=== PATIENT | female | born 1940 | race Caucasian/White ===

== ENCOUNTER 2017-01-26 16:15 | Emergency (ER) | payer MEDICARE ==
[2017-01-26 16:30] VITALS: BP 152/93
--- NOTE | 2017-01-26 19:09 | ERNOTE ---
Lower Extremity HPI - Narrative Date of Service: 01/26/17 - General Lower Extremities Pain: hip: left Time Seen by Provider: 01/26/17 17:20 Source: patient, RN notes reviewed, old records Exam Limitations: no limitations - Immun/Allergies/Home Medications Immunizations: IMMUNIZATION HX Immunizations Up to Date Yes Allergies/Adverse Reactions: Allergies Allergy/AdvReac Type Severity Reaction Status Date / Time No Known Allergies Allergy Verified 01/26/17 16:30 Home Medications: HOME MEDICATIONS Acetaminophen [Tylenol Arthritis] 650 mg PO Q8H PRN 09/19/12 [Last Taken Unknown ] Aspirin [Aspirin Enteric Coated] 81 mg PO DAILY 09/19/12 [Last Taken Unknown] Atorvastatin Calcium [Lipitor] 20 mg PO DAILY 09/19/12 [Last Taken Unknown] Cholecalciferol (Vitamin D3) [Vitamin D3] 1,000 unit PO DAILY 09/19/12 [Last Taken Unknown] Docusate Sodium [Colace] 100 mg PO DAILY 09/19/12 [Last Taken Unknown] Gluc/Tyler-MSM#1/C/Rian/Giorgio/Bor [Osteo Bi-Flex Caplet] 2 each PO DAILY 09/19/12 [ Last Taken Unknown] Telmisartan [Micardis] 40 mg PO DAILY 09/19/12 [Last Taken Unknown] - History of Present Illness Narrative: 76 y/o female ambulatory to the ED for left hip pain that began gradually over the past few days. She reports having arthritis and routinely takes Tylenol for it. Her pain became significantly worse earlier today when she was sitting with her left leg crossed over her right while putting new inserts in her shoes. She reports that her pain is not bad until she tries to put weight on the left leg. She is ambulating with a cane. She had Tylenol earlier this afternoon and currently denies the need for any other pain medication. She also denies any falls or specific injury. Date (Duration): 01/27/17 Occurred: this afternoon Location of Incident: home Method of Injury: Reports: no apparent injury Modifying Factors - (Improves): Reports: rest Modifying Factors - (Worsens): Reports: other - weight bearing Associated Symptoms: Denies: unable to bear weight, snapping, popping sensation , weakness, sensory loss, bowel/bladder problems Subsequent Symptoms: Denies: sensory loss, numbness, motor loss, bowel/bladder problem Prior Treament: Denies: recently seen, similar symptoms before Review of Systems - Review of Systems Constitutional: Absent: recent illness, fever, chills, malaise EYE: Present: no symptoms reported ENT: Present: no symptoms reported Respiratory: Absent: shortness of breath, cough Cardiology: Absent: chest pain, edema Gastrointestinal/Abdominal: Absent: diarrhea, constipation, abdominal pain Genitourinary: Present: See HPI Musculoskeletal: Present: joint pain. Absent: back pain, muscle pain, joint swelling Skin: Absent: lesions, lumps, change in color Neurological: Absent: weakness, numbness, tingling Endocrine: Present: no symptoms reported Hematologic/Lymphatic: Present: no symptoms reported Psych: Present: no symptoms reported - Patient's Past Medical History Patient History - Medical: Arthritis Patient History - Cardiac/Respiratory: Hypertension, Hyperlipidemia Patient History - Cancer: Ovarian Patient History - Surgical Procedures: Cataracts, Colonoscopy, Hysterectomy Patient History - Other: None LMP (females 10-50): Menopausal - Social History Living Situations: alone Psych History: No pertinent hx Does anyone smoke in the home?: Yes Smoking Status: Never smoker Alcohol Use: none Drug Use: none - Immunizations Immunizations Up to Date: Yes Hx Pneumococcal Vaccination: Yes History of Influenza Vaccine: No Physical Exam - Physical Exam General Appearance: Present: wd/wn, alert, no apparent distress Neck: Present: normal inspection, nontender, supple, full range of motion Respiratory: Present: no respiratory distress, normal breath sounds, no accessory muscle use, lungs clear Cardiovascular/Chest: Present: regular rate, rhythm, no murmur, normal peripheral pulses Back Exam: Present: normal inspection, normal range of motion, no CVA tenderness , no vertebral tenderness Extremity Exam: Present: normal range of motion, no edema, other - mild tenderness with palpation of left posterior hip just below buttock, no ecchymosis or deformity, grimaces with pain when putting weight on left leg. Absent: joint redness, joint swelling Neurological Exam: Present: alert, oriented, normal mood/affect, no motor/ sensory deficits Skin Exam: Present: normal color, warm/dry ED Progress - Vital Signs Patient's Vital Signs:: I have reviewed the patient's vital signs. Vital Signs: Vital Signs 01/26/17 16:27 Temperature 36.4 C L Pulse Rate 83 Respiratory 16 Rate Blood Pressure 152/93 O2 Sat by Pulse 97 Oximetry - X-Ray X-Ray #1 X-Ray: hip Interpretation: Reviewed by me X-ray Comments: ONE VIEW PELVIS AND 2 VIEW LEFT HIP COMPARISON: See below AP PELVIS: Single AP view of the pelvis was obtained. There are no prior studies for comparison. The bony pelvis is symmetric in appearance. I do not see evidence for fracture, diastases, or bony destruction. There is mild diffuse osteopenia. There is moderate-to- marked narrowing of the right hip joint without significant spurring. LEFT HIP: AP and frog-leg views of the left hip were obtained. There are no prior studies for comparison. The femoral head is normally positioned within the acetabulum. The joint space moderate narrowing with subchondral sclerosis and no significant spurring. The proximal femur appears intact IMPRESSION: 1. MILD DIFFUSE OSTEOPENIA. 2. MODERATE TO MARKED NARROWING OF THE HIP JOINTS (RIGHT GREATER THAN LEFT). 3. NO ACUTE OSSEOUS ABNORMALITY. Electronically signed by Bj Garcia M.D.. - Progress/Reassessment Chief Complaint: Lower Extremity Pain/ Injury Progress:: Unchanged Plan - Plan Plan: Discussed xray results, patient relieved that there is no fracture. Discussed osteoarthritis at length, has some difficulty understanding why she would suddenly start having more pain. Wishes to continue Tylenol for pain. Recommended f/u with PCP for lack of improvement in the next week. Departure Clinical Impression: Hip pain, left Osteoarthritis Qualifiers: Osteoarthritis location: hip Osteoarthritis type: unspecified Laterality: left Qualified Code(s): M16.12 - Unilateral primary osteoarthritis, left hip - Departure Disposition: Home Follow Up Needed Condition: Stable Instructions: Hip Pain Additional Instructions: Continue your current medications Follow up with your doctor if symptoms continue Referrals: Candelario Stinson MD [Primary Care Provider] -
== END 2017-01-26 19:08 | disposition home or self-care (01) ==
LOC: ER 16:15
DX: M25.552 Pain in left hip (principal); M16.12 Unilateral primary osteoarthritis, left hip; I10 Essential (primary) hypertension; E78.5 Hyperlipidemia, unspecified

== ENCOUNTER 2019-07-14 12:46 | Observation (INO) ==
[2019-07-14 13:09] LABS: Urine Bilirubin Negative (NEGATIVE); Urine Blood Negative /ul (NEGATIVE); Urine Ketone Negative (NEGATIVE); Urine Nitrite Negative (NEGATIVE); Urine Protein Negative (NEGATIVE); Urine Specific Gravity <=1.005 SP.GR. (1.005-1.010); Urine Urobilinogen Normal (NORMAL); Urine pH 8.5 pH (5.0-7.0)
--- NOTE | 2019-07-14 13:20 | ERNOTE ---
Neuro HPI ER Record Presenting Symptoms: confusion Time Seen by Provider: 07/14/19 13:01 Source: patient Exam Limitations: other Immunizations: IMMUNIZATION HX Immunizations Up to Date Yes History of Influenza Vaccine Yes Hx Pneumococcal Vaccination Yes Allergies/Adverse Reactions: Allergies Allergy/AdvReac Type Severity Reaction Status Date / Time No Known Allergies Allergy Verified 07/14/19 16:37 Home Medications: HOME MEDICATIONS Acetaminophen [Tylenol Arthritis] 650 mg PO Q8H PRN 09/19/12 [Last Taken Unknown] Aspirin [Aspirin Enteric Coated] 81 mg PO DAILY 09/19/12 [Last Taken Unknown] Docusate Sodium [Colace] 100 mg PO DAILY 09/19/12 [Last Taken Unknown] Gluc/Tyler-MSM#1/C/Rian/Giorgio/Bor [Osteo Bi-Flex Caplet] 2 ea PO DAILY 09/19/12 [Last Taken Unknown] polyethylene glycol 3350 17 gram/dose oral powder 17 g PO DAILY #510 g 01/25/19 [Last Taken Unknown] Atorvastatin Calcium [Lipitor] 20 mg PO DAILY 07/14/19 [Last Taken Unknown] Telmisartan [Micardis] 40 mg PO DAILY 07/14/19 [Last Taken Unknown] - History of Present Illness Narrative: Patient was last seen normal by family members around 10:30. 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 She currently knows her name and that she is in the hospital but not sure about the date or season. She feels slightly dizzy but denies any other complains Onset: cannot confirm onset Severity: mild - Character of Deficits New weakness: Absent: RUE, RLE, LUE, LLE Altered sensation: Absent: RUE, RLE, LUE Additional Deficits: Absent: vision problems, impaired speech Baseline Cognition: Present: alert but disoriented to time Baseline Gait: Present: walks w/o assistance Associated Symptoms: Denies: fever/chills, sweating, chest pain, neck/back pain, headache Prior Treament: Denies: recently seen, similar symptoms before Review of Systems - Review of Systems Constitutional: Absent: recent illness EYE: Absent: vision changes ENT: Absent: nose congestion, sore throat Respiratory: Absent: shortness of breath Cardiology: Absent: chest pain Gastrointestinal/Abdominal: Absent: nausea, abdominal pain Genitourinary: Present: no symptoms reported Musculoskeletal: Absent: back pain Skin: Absent: rash Neurological: Present: See HPI. Absent: headache Medical History (Last Reviewed 07/14/19 @ 14:05 by Tere Rob MD) Essential hypertension (Chronic) Age-related cognitive decline (Chronic) Encounter for Medicare annual wellness exam (Acute) Trochanteric bursitis of right hip (Acute) Constipation by delayed colonic transit (Acute) Pain in joint of right hip (Chronic) Pain in right knee (Chronic) Vitamin D deficiency (Chronic) Hypertension (Chronic) Hyperlipidemia (Chronic) Osteopenia Ovarian cancer Arthritis Onset Date: ~2004 Hyperlipidemia due to dietary fat intake Onset Date: ~2002 Hypertension Onset Date: ~2002 Ovarian mass Onset Date: ~1979 10 lb mass removed; Rxed w/ radiation; pt felt it was due to CA Surgical History: Surgical History (Last Reviewed 07/14/19 @ 14:05 by Tere Rob MD) History of YAG laser capsulotomy of lens 09/20/2017, 12/23/2010; Left, Right- Hx of cataract surgery Onset Date: ~2002 ; Bilateral Hx of colonoscopy 1996, 2003, 2008, 09/20/2012; Polyp's Removed in 2003 and 2008 . 2008 Tubular Adenoma. 2012 [place]-scattered sigmoid diverticulosis. Recheck in 5 years Hx of hysterectomy HERN[facility]N BSO Family History: Family History (Last Reviewed 07/14/19 @ 16:37 by Cely Dai RN) Father , @ age 64 Colon cancer Mother , @ age 84 of old age No problems noted. Sister , @ age 67 Breast cancer Social History: (Last Reviewed 07/14/19 @ 16:37 by Cely Dai RN) Social History: penitentiary: No Marital status: Single lives independently: Yes household members: none current occupational status: retired Highest education level completed: Master's degree Service: No Tobacco: Smoking Status: Never smoker Alcohol: alcohol intake: former Substance Use: substance use type: does not use Dietary Habits: caffeine: Yes Physical Exam - Physical Exam General Appearance: Present: wd/wn, alert, no apparent distress, anxious Head Exam: Present: normal inspection, no evidence of injury Eye Exam: Normal inspection: bilateral, PERRL: bilateral, EOMI: bilateral Ears, Nose, Throat: Present: normal ENT inspection, normal pharynx Neck: Present: normal inspection, nontender Respiratory: Present: no respiratory distress, normal breath sounds, no accessory muscle use, lungs clear Cardiovascular/Chest: Present: regular rate, rhythm, no murmur Gastrointestinal/Abdominal: Present: normal bowel sounds, nontender, nondistended, soft Back Exam: Present: no vertebral tenderness Extremity Exam: Present: normal inspection Neurological Exam: Present: normal mood/affect, no motor/sensory deficits, 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 Absent: disoriented to person, disoriented to place Skin Exam: Present: normal color, warm/dry [place] Coma Scale - Assess Eye Opening: Spontaneous Motor: Obeys Commands Verbal: Confused - Total Coma Scale Total: 14 Progress - Results and Orders Patient's Lab Results:: I have reviewed the patient's lab results. - Vital Signs Patient's Vital Signs:: I have reviewed the patient's vital signs. Vital Signs: Vital Signs 07/14/19 12:46 Temperature 36.6 C Pulse Rate 80 Respiratory Rate 21 H Blood Pressure 130/68 O2 Sat by Pulse Oximetry 100 - EKG EKG #1 EKG: NSR, other - no acute changes EKG read: Interp. by me - CT/Ultrasound CT/Ultrasound Narrative: CT head: no acute changes - Progress/Reassessment Chief Complaint: Altered Mental Status Progress Note-Subjective: 07/14/19 15:30 discussed test results with patient and family. Patient alert, now knows that it is it June, thinks it is 1918 nieces state that that neighbors think she might have had spells like this before 07/14/19 15:[address] Mejía, okay to admit for observation for mental status changes Departure Clinical Impression: Confusion - Departure Disposition: Still a patient Condition: Stable
[2019-07-14 13:27] LABS: Urine Appearance Clear (CLEAR); Urine Bacteria None Seen; Urine Color Yellow; Urine RBC None Seen /hpf (0-5); Urine WBC 0-5 /hpf (0-5)
[2019-07-14 13:34] LABS: Hematocrit 37.3 % (37.0-47.0); Hemoglobin 12.5 gm/dL (12.5-16.0); Mean Cell Volume 94.7 fl (78-100); Mean Corpuscular Hemoglobin 31.7 pg (27-31); Mean Corpuscular Hgb Conc 33.5 g/dl (32-36); Mean Platelet Volume 9.8 fl (8-12.5); Neutrophil # 3.3 K/mm3 (1.3-6.0); Neutrophil % 54.2 % (42-75.0); Platelet Count 190 K/mm3 (150-450); Red Blood Count 3.94 M/mm3 (4.2-5.4); Red Cell Distribution Width 12.9 % (11.5-14.0); White Blood Count 6.1 K/mm3 (4.0-10.5)
[2019-07-14 13:45] LABS: ALT 16 U/L (19-67); AST 21 U/L (0-48); Albumin * 4.4 gm/dl (3.4-5.0); Alkaline Phosphatase * 61 U/L (50-170); Anion Gap 13.4 mmol/L (6.8-13.8); BUN/Creatinine Ratio 13.8 (9.0-21.6); Bilirubin, Total 0.7 mg/dL (0.0-1.1); Blood Urea Nitrogen 12 mg/dL (3-23); Ca. Corrected For Albumin 9.6 mg/dL (8.4-10.2); Calcium * 10.2 mg/dL (7.9-10.9); Carbon Dioxide 26.9 mmol/L (24-32.6); Chloride 101 mmol/L (97-106); Glucose * 88 mg/dL (70-110); Potassium 3.3 mmol/L (3.4-4.6); Sodium 138 mmol/L (132-142); Total Protein 7.6 gm/dL (6.2-8.2)
[2019-07-14] MEDS ORDERED: ACETAMINOPHEN 325 MG TABLET PO PRN (18:46)
--- NOTE | 2019-07-14 18:56 | HP ---
Chief Complaint - Chief Complaint Date of Service: 07/14/19 Time of Service: 18:30 Chief Complaint: Acute altered mental status History of Present Illness: Vikki Gomez is a 79-year-old female patient fairly well-known to me she is been a patient in the clinic for about a year. Today she had driven downtown and was looking for a hairdresser shop. She got out of her car and became disoriented and became lost. A helpful bystander asked her if she needed some help and help her get oriented to where the hairdresser shop was and the police came and found her car because she could not find out earlier as well. She then was brought to the hospital where she was evaluated. It appears that she has progressed with her dementia that I suspected in the past. She is very aware of what happened today and can recount the events of the day very well. She still has trouble with time and date. She is tired this evening. CT scan and chemistries were all unrevealing. 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 She is concerned about the mental decline however. She has been retired for several years. Medical History (Last Reviewed 07/14/19 @ 16:37 by Cely Dai RN) Essential hypertension (Chronic) Age-related cognitive decline (Chronic) Encounter for Medicare annual wellness exam (Acute) Trochanteric bursitis of right hip (Acute) Constipation by delayed colonic transit (Acute) Pain in joint of right hip (Chronic) Pain in right knee (Chronic) Vitamin D deficiency (Chronic) Hypertension (Chronic) Hyperlipidemia (Chronic) Osteopenia Ovarian cancer Arthritis Onset Date: ~2004 Hyperlipidemia due to dietary fat intake Onset Date: ~2002 Hypertension Onset Date: ~2002 Ovarian mass Onset Date: ~1979 10 lb mass removed; Rxed w/ radiation; pt felt it was due to CA Surgical History: Surgical History (Last Reviewed 07/14/19 @ 16:37 by Cely Dai RN) History of YAG laser capsulotomy of lens 09/20/2017, 12/23/2010; Left, Right- Hx of cataract surgery Onset Date: ~2002 ; Bilateral Hx of colonoscopy 1996, 2003, 2008, 09/20/2012; Polyp's Removed in 2003 and 2008 . 2009 Tubular Adenoma. 2013 [place]-scattered sigmoid diverticulosis. Recheck in 5 years Hx of hysterectomy HERNÁN BSO Family History: Family History (Last Reviewed 07/14/19 @ 16:37 by Cely Dai RN) Father , @ age 64 Colon cancer Mother , @ age 84 of old age No problems noted. Sister , @ age 67 Breast cancer Social History: (Last Reviewed 07/14/19 @ 16:37 by Cely Dai RN) Social History: chcf: No Marital status: Single lives independently: Yes household members: none current occupational status: retired Highest education level completed: Master's degree Service: No Tobacco: Smoking Status: Never smoker Alcohol: alcohol intake: former Substance Use: substance use type: does not use Dietary Habits: caffeine: Yes Review Of Systems (GEN) - Review of Systems Generalized/Overall Review: Present: No Symptoms Reported EENTM: Present: No Symptoms Reported Respiratory: Present: No Symptoms Reported Cardiac: Present: No Symptoms Reported Abdominal: Present: No Symptoms Reported Genitourinary: Present: No Symptoms Reported Musculoskeletal: Present: No Symptoms Reported Neurological: Present: Other - Altered mental status. Please see above discussion.. Absent: Parasthesia, Seizure, Tingling, Tremors, Weakness, Pre- existing Deficit Skin: Present: No Symptoms Reported, Dryness Endocrine: Present: No Symptoms Reported Immunizations: IMMUNIZATION HX Immunizations Up to Date Yes History of Influenza Vaccine Yes Hx Pneumococcal Vaccination Yes Allergies/Adverse Reactions: Allergies Allergy/AdvReac Type Severity Reaction Status Date / Time No Known Allergies Allergy Verified 07/14/19 16:37 Home Medications: HOME MEDICATIONS Acetaminophen [Tylenol Arthritis] 650 mg PO Q8H PRN 09/19/12 [Last Taken Unknown] Aspirin [Aspirin Enteric Coated] 81 mg PO DAILY 09/19/12 [Last Taken Unknown] Docusate Sodium [Colace] 100 mg PO DAILY 09/19/12 [Last Taken Unknown] Gluc/Tyler-MSM#1/C/Rian/Giorgio/Bor [Osteo Bi-Flex Caplet] 2 ea PO DAILY 09/19/12 [Last Taken Unknown] polyethylene glycol 3350 17 gram/dose oral powder 17 g PO DAILY #510 g 01/25/19 [Last Taken Unknown] Atorvastatin Calcium [Lipitor] 20 mg PO DAILY 07/14/19 [Last Taken Unknown] Telmisartan [Micardis] 40 mg PO DAILY 07/14/19 [Last Taken Unknown] Exam - Exam Vital Signs: Vital Signs - Last Taken Temp 37.0 C 07/14/19 16:38 Pulse 64 07/14/19 17:00 Resp 16 07/14/19 16:38 BP 140/87 07/14/19 16:38 Pulse Ox 97 07/14/19 16:38 Constitutional: Present: Alert, Oriented x3, Cooperative, Well developed, Well nourished, No distress ENT Exam: Present: normal ENT inspection, hearing grossly normal, pharynx normal, TMs normal Eye Exam: bilateral eye: normal inspection, PERRL, EOMI Neck: Present: non-tender, full range of motion, supple, normal inspection, trachea midline Back Exam: Present: normal inspection, no CVA tenderness, no vertebral tenderness Breasts: Present: Exam deferred Respiratory: Present: chest non-tender, lungs clear, normal breath sounds, no respiratory distress, no accessory muscle use Cardiovascular/Chest: Present: normal peripheral pulses, regular rate, rhythm, no chest tenderness, no edema, no gallop, no JVD, no murmur, no rub Peripheral Pulses: carotid (R): 2+, carotid (L): 2+, radial (R): 2+, radial (L): 2+ Abdomen: Present: Normal bowel sounds, soft, nontender, nondistended, no rebound tenderness, no hepatospenomegaly, no masses /Rectal: Present: Exam deferred, External genitalia normal Extremity: Present: normal range of motion, non-tender, normal inspection, no pedal edema, no calf tenderness, normal capillary refill Skin Exam: Present: normal color, warm/dry, no cyanosis Lymphatic: Present: no adenopathy Neurologic: Present: 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, normal cerebellar test, no motor/sensory deficits, alert, normal mood/affect Appearance: Present: appropriate appearance, appropriate insight, neat, no memory impairment Eye contact: Present: cooperative, good eye contact, normal speech Thoughts: Present: normal thought pattern, no apparent hallucination Diagnostic Studies: Abnormal Lab Results 07/14/19 07/14/19 Range/Units 13:25 13:25 RBC 3.94 L (4.2-5.4) M/mm3 MCH 31.7 H (27-31) pg Potassium 3.3 L (3.4-4.6) mmol/L ALT 16 L (19-67) U/L Laboratory Results WBC 6.1 K/mm3 (4.0-10.5) 07/14/19 13:25 RBC 3.94 M/mm3 (4.2-5.4) L 07/14/19 13:25 Hgb 12.5 gm/dL (12.5-16.0) 07/14/19 13:25 Hct 37.3 % (37.0-47.0) 07/14/19 13:25 MCV 94.7 fl (78-100) 07/14/19 13:25 MCH 31.7 pg (27-31) H 07/14/19 13:25 MCHC 33.5 g/dl (32-36) 07/14/19 13:25 RDW 12.9 % (11.5-14.0) 07/14/19 13:25 Plt Count 190 K/mm3 (150-450) 07/14/19 13:25 MPV 9.8 fl (8-12.5) 07/14/19 13:25 Immature Gran % (Auto) 0.30 % (0.001-0.429) 07/14/19 13:25 Immature Gran # (Auto) 0.02 K/mm3 (0.000-0.0310) 07/14/19 13:25 Neutrophils % 54.2 % (42-75.0) 07/14/19 13:25 Lymphocytes % 35.9 % (20-51) 07/14/19 13:25 Monocytes % 8.1 % (0.0-9) 07/14/19 13:25 Eosinophils % 0.8 % (0.0-3.0) 07/14/19 13:25 Basophils % 0.7 % (0.0-1.0) 07/14/19 13:25 Nucleated RBC % 0.0 k/mm3 (0-1) 07/14/19 13:25 Neutrophils # 3.3 K/mm3 (1.3-6.0) 07/14/19 13:25 Lymphocytes # 2.18 k/mm3 (1.5-3.5) 07/14/19 13:25 Monocytes # 0.5 k/mm3 (0.0-1.0) 07/14/19 13:25 Eosinophils # 0.1 k/mm3 (0.0-0.7) 07/14/19 13:25 Absolute Basophils 0.0 k/mm3 (0.0-0.1) 07/14/19 13:25 Sodium 138 mmol/L (132-142) 07/14/19 13:25 Plasma Sodium 138 mmol/L (130-142) 07/14/19 13:25 Potassium 3.3 mmol/L (3.4-4.6) L 07/14/19 13:25 Chloride 101 mmol/L (97-106) 07/14/19 13:25 Carbon Dioxide 26.9 mmol/L (24-32.6) 07/14/19 13:25 Anion Gap 13.4 mmol/L (6.8-13.8) 07/14/19 13:25 BUN 12 mg/dL (3-23) 07/14/19 13:25 Creatinine 0.87 mg/dL (0.4-1.4) 07/14/19 13:25 Est GFR (Non-Af Amer) 67 mL/min (60-130) 07/14/19 13:25 BUN/Creatinine Ratio 13.8 (9.0-21.6) 07/14/19 13:25 Random Glucose 88 mg/dL (70-110) 07/14/19 13:25 Calcium 10.2 mg/dL (7.9-10.9) 07/14/19 13:25 Calcium Adj for Albumin 9.6 mg/dL (8.4-10.2) 07/14/19 13:25 Total Bilirubin 0.7 mg/dL (0.0-1.1) 07/14/19 13:25 AST 21 U/L (0-48) 07/14/19 13:25 ALT 16 U/L (19-67) L 07/14/19 13:25 Alkaline Phosphatase 61 U/L (50-170) 07/14/19 13:25 C-Reactive Prot, Quant Less than 0.2 mg/dL (0.0-0.9) 07/14/19 13:25 Total Protein 7.6 gm/dL (6.2-8.2) 07/14/19 13:25 Albumin 4.4 gm/dl (3.4-5.0) 07/14/19 13:25 Urine Color Yellow 07/14/19 13:04 Urine Appearance Clear (CLEAR) 07/14/19 13:04 Urine pH 8.5 pH (5.0-7.0) 07/14/19 13:04 Ur Specific [place] <=1.005 SP.GR. (1.005-1.010) 07/14/19 13:04 Urine Protein Negative mg/dL (NEGATIVE) 07/14/19 13:04 Urine Glucose (UA) Negative mg/dL (NEGATIVE) 07/14/19 13:04 Urine Ketones Negative mg/dL (NEGATIVE) 07/14/19 13:04 Urine Blood Negative /ul (NEGATIVE) 07/14/19 13:04 Urine Nitrate Negative (NEGATIVE) 07/14/19 13:04 Urine Bilirubin Negative mg/dl (NEGATIVE) 07/14/19 13:04 Urine Urobilinogen Normal EU/dl (NORMAL) 07/14/19 13:04 Ur Leukocyte Esterase Negative /ul (NEGATIVE) 07/14/19 13:04 Urine RBC None seen /hpf (0-5) 07/14/19 13:04 Urine WBC 0-5 /hpf (0-5) 07/14/19 13:04 Ur Epithelial Cells 0-5 /hpf (0-5) 07/14/19 13:04 Urine Bacteria None seen (NONE) 07/14/19 13:04 Urine Culture Comments No culture indicated 07/14/19 13:04
[2019-07-15] MEDS ORDERED: DOCUSATE SODIUM 100 MG CAPSULE PO SCH (09:00)
[2019-07-15] MEDS ORDERED: ASPIRIN 81 MG TABLET.DR PO SCH (09:00)
[2019-07-15] MEDS ORDERED: POLYETHYLENE GLYCOL 3350 17 GM PACKET PO SCH (09:00)
[2019-07-15] MEDS ORDERED: POLYETHYLENE GLYCOL 3350 119 GM BTL PO SCH (09:00)
[2019-07-15] MEDS ORDERED: LOSARTAN POTASSIUM 50 MG TABLET PO SCH (09:00)
[2019-07-15] MEDS ORDERED: [UNRECOGNIZED DRUG - MIXTURE] PO SCH (09:00)
--- NOTE | 2019-07-15 12:30 | DS ---
(1) Acute on chronic alteration in mental status Problem: Acute (2) Age-related cognitive decline Problem: Chronic Date of Discharge:: 07/15/19 Description of Stay: Vikki Gomez is a 79-year-old female patient who had been downtown yesterday driving and looking for her [employer] shop. She got out of her car after parking [place] became disoriented and [place]. Helpful passerby's asked if they could help her and they did get her to the hair shop. EMS was summoned and she was brought to the hospital for evaluation for acute altered mental status. I have suspected that she has some developing dementia for several months but she is never had any dysfunctional events from it. I believe that this event stems from her dementia and she had some spatial disoriented experience. She was admitted for observation due to acute altered mental status. She is better this morning. She is answering questions appropriately and is more alert. She had a good nights rest. She will be discharged to her home and a relative will come pick her up later this afternoon. Her disposition is improved and her prognosis is good. Procedures Performed: none Results and Findings: Lab Pending Results 07/14/19 13:04: Urine Color Yellow, Urine Appearance Clear, Urine pH 8.5, Ur Specific [place] <=1.005, Urine Protein Negative, Urine Glucose (UA) Negative, Urine Ketones Negative, Urine Blood Negative, Urine Nitrate Negative, Urine Bilirubin Negative, Urine Urobilinogen Normal, Ur Leukocyte Esterase Negative, Urine RBC None seen, Urine WBC 0-5, Ur Epithelial Cells 0-5, Urine Bacteria None seen, Urine Culture Comments No culture indicated 07/14/19 13:25: WBC 6.1, RBC 3.94 L, Hgb 12.5, Hct 37.3, MCV 94.7, MCH 31.7 H, MCHC 33.5, RDW 12.9, Plt Count 190, MPV 9.8, Immature Gran % (Auto) 0.30, Immature Gran # (Auto) 0.02, Neutrophils % 54.2, Lymphocytes % 35.9, Monocytes % 8.1, Eosinophils % 0.8, Basophils % 0.7, Nucleated RBC % 0.0, Neutrophils # 3.3, Lymphocytes # 2.18, Monocytes # 0.5, Eosinophils # 0.1, Absolute Basophils 0.0 07/14/19 13:25: Sodium 138, Plasma Sodium 138, Potassium 3.3 L, Chloride 101, Carbon Dioxide 26.9, Anion Gap 13.4, BUN 12, Creatinine 0.87, Est GFR (Non-Af Amer) 67, BUN/Creatinine Ratio 13.8, Random Glucose 88, Calcium 10.2, Calcium Adj for Albumin 9.6, Total Bilirubin 0.7, AST 21, ALT 16 L, Alkaline Phosphatase 61, C-Reactive Prot, Quant Less than 0.2, Total Protein 7.6, Albumin 4.4 Discharge Location: Home Disposition: Home self-care Condition: Stable Face to Face Encounter completed per [facility] Guidelines: No Discharge Activity: Activity as tolerated Discharge Diet: General/regular food Referrals: Abdiel Mejía DO [Primary Care Provider] - Additional Patient Instructions (free text): See Dr. Mejía in the office within 2 weeks. I will discuss neurology consultation for evaluation of her dementia at that time. I will start her on memantine today. Prescriptions (Any new or edited meds): Memantine HCl [Namenda] 5 mg PO DAILY #14 tab Transmission Status: Pending to [place], [place] Complete Home Medications List: Complete Home Medication List: Acetaminophen [Tylenol Arthritis] 650 mg PO Q8H PRN 09/19/12 Aspirin [Aspirin Enteric Coated] 81 mg PO DAILY 09/19/12 Docusate Sodium [Colace] 100 mg PO DAILY 09/19/12 Gluc/Tyler-MSM#1/C/Rian/Giorgio/Bor [Osteo Bi-Flex Caplet] 2 ea PO DAILY 09/19/12 polyethylene glycol 3350 17 gram/dose oral powder 17 g PO DAILY #510 g 01/25/19 Telmisartan [Micardis] 40 mg PO DAILY 07/14/19 Memantine HCl [Namenda] 5 mg PO DAILY #14 tab 07/15/19
[2019-07-15 14:32] VITALS: BP 153/85
== END 2019-07-15 14:37 | disposition home or self-care (01) ==
LOC: MS 12:46 → ER 12:46 → MS 16:15
PROVIDERS: ADMIT Family Medicine; ATTEND Family Medicine
CPT/HCPCS: 36415; 70450; 80053; 81001; 85025; 86140; 93005; 99285; G0378